=== PATIENT | female | born 1990 | race Caucasian/White ===

== ENCOUNTER → 2016-11-07 | Outpatient (CLI) | payer MEDICAID | END | disposition home or self-care (01) | LOC: LABWHC1 11:21 | PROVIDERS: ATTEND Obstetrics & Gynecology Reproductive Endocrinology | DX: O99.280 Endocrine, nutritional and metabolic diseases complicating pregnancy, unspecified trimester (principal); O34.80 Maternal care for other abnormalities of pelvic organs, unspecified trimester; Z3A.00 Weeks of gestation of pregnancy not specified; Z01.812 Encounter for preprocedural laboratory examination | CPT/HCPCS: 36415; 82670; 84144 ==

== ENCOUNTER → 2016-11-14 | Outpatient (CLI) | payer MEDICAID ==
[2016-11-14 13:05] LABS: HCG,Quantitative Serum 505.8 mIU/mL
== END | disposition home or self-care (01) ==
LOC: LABWHC1 11:25
PROVIDERS: ATTEND Obstetrics & Gynecology Reproductive Endocrinology
DX: Z01.818 Encounter for other preprocedural examination (principal); E34.9 Endocrine disorder, unspecified; N98.1 Hyperstimulation of ovaries
CPT/HCPCS: 36415; 82670; 84144; 84702

== ENCOUNTER → 2016-11-16 | Outpatient (CLI) | payer MEDICAID ==
[2016-11-16 08:38] LABS: HCG,Quantitative Serum 1218.4 mIU/mL
[2016-11-16 10:14] LABS: CH 30.7; CHCM 34.2; HCT 38.6 % (34.0-46.0); HGB 12.9 gm/dL (11.4-16.0); MCH 30.1 pg (25.0-35.0); MCHC 33.4 g/dL (31.0-37.0); MCV 90.2 fL (80.0-100.0); Mean Platelet Volume 7.9; RBC 4.29 m/uL (3.80-5.40); RDW 12.3 % (11.5-15.5); WBC 9.1 k/uL (3.8-10.6)
[2016-11-21 10:15] LABS: Mis test requested (Blood) EBV DNA PCR Qual
== END | disposition home or self-care (01) ==
LOC: LABPRL 07:55 → EDSTATUS 09:54
PROVIDERS: ATTEND Obstetrics & Gynecology Reproductive Endocrinology
DX: Z33.1 Pregnant state, incidental (principal)
CPT/HCPCS: 82670; 84144; 84702; 85027; 86308; 87081; 87430; 87798

== ENCOUNTER → 2016-12-07 | Outpatient (CLI) | payer MEDICAID ==
[2016-12-07 13:31] LABS: HCG,Quantitative Serum 58920.3 mIU/mL
== END | disposition home or self-care (01) ==
LOC: LABWHC1 12:10
PROVIDERS: ATTEND Obstetrics & Gynecology Reproductive Endocrinology
DX: Z01.812 Encounter for preprocedural laboratory examination (principal); E34.9 Endocrine disorder, unspecified; N98.1 Hyperstimulation of ovaries; Z33.1 Pregnant state, incidental
CPT/HCPCS: 36415; 82670; 84144; 84702

== ENCOUNTER 2017-07-12 05:03 | Inpatient (IN) | payer MEDICAID ==
[2017-07-12] MEDS ORDERED: CARBOPROST TROMETHAMINE 250 MCG/ML 1 ML AMP IM PRN (06:52)
[2017-07-12] MEDS ORDERED: TERBUTALINE 1 MG/ML VIAL SQ PRN (06:52)
[2017-07-12] MEDS ORDERED: OXYTOCIN 10 UNIT/ML 1 ML VIAL IM PRN (06:52)
[2017-07-12] MEDS ORDERED: METHYLERGONOVINE 0.2 MG/ML 1 ML AMP IM PRN (06:52)
[2017-07-12] MEDS ORDERED: LIDOCAINE 1% (PF) 10 MG/ML (30 ML SDV) SQ PRN (06:52)
[2017-07-12] MEDS ORDERED: OXYTOCIN 20 UNITS/1000 ML NS 1,000 ML IV SCH (07:00)
[2017-07-12 07:26] VITALS: BMI 31.1
[2017-07-12] MEDS: LACTATED RINGERS 1,000 ML IV SCH ×2 (07:57→20:37)
[2017-07-12 07:59] LABS: CH 29.4; CHCM 33.5; HCT 33.8 % (34.0-46.0); HDW 2.99; HGB 11.4 gm/dL (11.4-16.0); MCH 29.7 pg (25.0-35.0); MCHC 33.7 g/dL (31.0-37.0); MCV 88.3 fL (80.0-100.0); Mean Platelet Volume 8.4; RBC 3.83 m/uL (3.80-5.40); RDW 13.8 % (11.5-15.5); WBC (Perox) 11.26
[2017-07-12] MEDS ORDERED: SODIUM CHLORIDE 0.9% 100 ML BAG ONE (07:59)
[2017-07-12] MEDS ORDERED: BUPIVACAINE (PF) 0.25% 30 ML VIAL ONE (07:59)
[2017-07-12] MEDS ORDERED: fentaNYL (PF) 50 MCG/ML 5 ML AMP ONE (07:59)
[2017-07-12] MEDS ORDERED: BUPIVACAINE (PF) 0.25% 25 ML, fentaNYL (PF) 200 MCG in SODIUM CHLORIDE 0.9% 71 ML EPIDURAL ONE (08:15)
[2017-07-12 08:27] LABS: Add Differential Manual Differential
[2017-07-12 08:29] LABS: Nucleated Red Blood Cells 0 /100 WBC (0-0); Total Cells Counted 100
[2017-07-12 08:30] LABS: Manual Review Performed
--- NOTE | 2017-07-12 11:54 | P.HPOB ---
History of Present Illness H&P Date: 07/12/17 Chief Complaint: 38-6/7 weeks, spontaneous rupture of membranes The patient is a 27-year-old 2 para 1001 admitted at 38-6/7 weeks by IVF dating. She is admitted with some presumed spontaneous rupture of membranes and in early active labor with all signs reassuring. Her has been essentially uncomplicated though she was found at 19 weeks to have a circumvallate placenta and, as a result, has had testing weekly since 32 weeks which was always reassuring. Group B strep status is negative. Obstetrical history: 2 para 1001 with 1 term vaginal delivery without complications. Current statistics are listed above. EDC of 2016 was established by last menstrual period and IVF dating. Laboratory workup demonstrates a blood type of O+ with a negative antibody screen. Rubella status is immune. All other laboratory workup was within normal limits. Second trimester Glucola was normal and group B strep status is negative. Serial growth ultrasounds showed adequate growth throughout the as well. Behavioral Health Consultant history: Unremarkable with no history of any infections to include STDs. Review of Systems Review of systems is confined to history of present illness. Past Medical History Past Medical History: Thyroid Disorder Additional Past Medical History / Comment(s): had grave's disease History of Any Multi-Drug Resistant Organisms: None Reported Additional Past Surgical History / Comment(s): thyroidectomy Past Anesthesia/Blood Transfusion Reactions: No Reported Reaction Past Psychological History: No Psychological Hx Reported Smoking Status: Never smoker Past Alcohol Use History: None Reported Past Drug Use History: None Reported - Past Family History Father Family Medical History: Diabetes Mellitus Medications and Allergies Home Medications Medication Instructions Recorded Confirmed Type Levothyroxine Sodium [Synthroid] 150 mcg PO DAILY 02/24/14 07/12/17 History Idp-Xfyp-Uiixz Acid 1 each PO DAILY 02/24/14 07/12/17 History [-U Capsule] Allergies Allergy/AdvReac Type Severity Reaction Status Date / Time No Known Allergies Allergy Verified 07/12/17 05:25 Exam - Vital Signs Vital signs: Vital Signs Temp Pulse Resp BP 07/12/17 07:22 97.0 F L 95 16 117/76 07/12/17 06:30 97.0 F L 95 16 117/76 Intake and Output 07/11/17 07/12/17 07/12/17 22:59 06:59 14:59 Other: Weight 87.543 kg 87.543 kg Patient Weight 07/13/17 06:59 Weight 87.543 kg In general, this is a well-developed, well-nourished white female in no acute distress. Her heart has a regular rhythm and rate without murmur. Her lungs are clear to auscultation bilaterally in all bedolla. Her abdomen is gravid, nondistended, has normal active bowel sounds, soft, nontender, without any palpable masses aside from uterine fundus. Her extremities without any cyanosis , clubbing, or significant edema and are nontender to palpation bilaterally. Digital cervical examination demonstrates her cervix to be approximately 6-7 cm dilated, 90% effaced, the vertex in presentation at -1 station. Attempt at artificial rupture of membranes demonstrated no fluid likely confirming the diagnosis of spontaneous rupture. Results Result Diagrams: 07/12/17 07:19 Abnormal Lab Results - Last 24 Hours (Table) 07/12/17 Range/Units 07:19 Hct 33.8 L (34.0-46.0) % Neutrophils # (Manual) 8.20 H (1.3-7.7) k/uL Assessment and Plan (1) Spontaneous rupture of amniotic membranes Status: Acute (2) Active labor at term Status: Acute Plan: The patient is admitted for active management of labor. An epidural catheter has been placed for analgesia and she will continue to have close maternal and surveillance along with expectant management.
--- NOTE | 2017-07-12 11:56 | P.PROBDLV ---
Vaginal Delivery Note - . Vaginal Delivery Note: The patient is a 27-year-old 2 para 1001 admitted at 38-6/7 weeks by good dating parameters perches admitted in active labor with spontaneous rupture of membranes. On labor and delivery, all signs were reassuring. She had an epidural catheter placed for analgesia and then progressed steadily through the active phase of labor to complete where after she pushed over the course of approximately 4-5 contractions to a normal spontaneous vaginal delivery of a viable 8 lbs. 1 oz. baby girl with Apgars of 9 at 1 minute and 9 at 5 minutes delivered in the left occiput anterior position. The placenta was delivered spontaneously, intact, and grossly normal with a grossly normal three- vessel cord inserted approximately 2 cm from the margin of the placenta. The findings on the placenta were consistent with circumvallate placenta. A second- degree midline laceration was noted over the site of a previous episiotomy scar and was repaired in standard fashion using 3-0 chromic catgut without difficulty. Estimated blood loss for the case is up roughly 400 mL. There were no complications. All sponge, instrument, and needle counts were correct. Both mother and infant are resting comfortably in recovery.
[2017-07-12] MEDS ORDERED: BENZOCAINE/MENTHOL SPRAY 1 GM/SPRAY AEROSOL TOPICAL PRN (12:16)
[2017-07-12] MEDS ORDERED: SIMETHICONE 80 MG CHEWABLE PO PRN (16:12)
[2017-07-12] MEDS ORDERED: ACETAMINOPHEN TAB 325 MG TAB PO PRN (16:12)
[2017-07-12] MEDS ORDERED: ZOLPIDEM 5 MG TAB PO PRN (16:12)
[2017-07-12] MEDS ORDERED: HYDROCORTISONE 2.5% RECTAL CREAM 30 GM TUBE RECTAL PRN (16:12)
[2017-07-12] MEDS ORDERED: Acetaminophen-Codeine 300-30mg TAB PO PRN ×2 (16:12)
[2017-07-12] MEDS ORDERED: IBUPROFEN 600 MG TAB PO PRN (16:12)
[2017-07-12] MEDS ORDERED: WITCH HAZEL 1 EACH MED..PAD TOPICAL PRN (16:12)
[2017-07-12] MEDS ORDERED: diphenhydrAMINE 50 MG CAP PO PRN (16:12)
[2017-07-12] MEDS ORDERED: diphenhydrAMINE 25 MG CAP PO PRN (16:12)
[2017-07-12] MEDS ORDERED: LANOLIN CREAM 5 GM TUBE TOPICAL PRN (16:12)
[2017-07-12] MEDS ORDERED: diphenhydrAMINE 50 MG/ML 1 ML VIAL IVP PRN ×2 (16:12)
[2017-07-12] MEDS: SENNOSIDES-DOCUSATE SODIUM 1 EACH TAB PO SCH (20:37)
[2017-07-13] MEDS: SENNOSIDES-DOCUSATE SODIUM 1 EACH TAB PO SCH (07:45)
[2017-07-13 08:26] VITALS: BP 111/66; PULSE 89; RESP 18; TEMP 97.6
--- NOTE | 2017-07-13 08:47 | P.DS ---
Providers Date of admission: 07/12/17 06:39 Expected date of discharge: 07/13/17 Attending physician: John Christopher Primary care physician: Stated None - Discharge Diagnosis(es) (1) Spontaneous rupture of amniotic membranes Current Visit: Yes Status: Acute (2) Active labor at term Current Visit: Yes Status: Acute (3) Normal spontaneous vaginal delivery Current Visit: Yes Status: Acute Hospital Course: The patient is a 27-year-old 2 para 1001 admitted at 38-6/7 weeks by good dating parameters perches admitted in early active labor with all signs reassuring. Her was uncomplicated though she did have a circumvallate placenta and underwent testing from 32 weeks on a weekly basis which was reassuring throughout. Group B strep status was negative. On labor and delivery, she had attempted artificial rupture of membranes at which time no fluid was noted nor any bag detected confirming the likelihood that she had undergone spontaneous rupture at the time of presentation. She made good progress through the active phase of labor without any augmentation and ultimately pushed to a normal spontaneous vaginal delivery of a viable 8 lbs. 1 oz. baby girl with Apgars of 9 at 1 minute and 9 at 5 minutes. Her course was unremarkable vital signs being stable and her temperature was afebrile throughout. She was deemed stable for discharge on day #1 and was discharged home to follow-up in the office in 6 weeks' time routinely. Discharge instructions included calling for any significantly increased bleeding or foul-smelling lochia, significantly increased fever or abdominal pain, perineal complaints, breast complaints, or anything else that concerned her. She was additionally instructed to have nothing in the vagina for at least 6 weeks time to include intercourse. She understood her instructions and agrees to follow up as noted above. Discharge medications included continued vitamins as she has opted to breast- feed as well as cpdp-urv-ghlzgtk analgesic pain medications. Maternal blood type is O+ and rubella status is immune. Procedures: #1. Epidural analgesia #2. Normal spontaneous vaginal delivery #3. Repair of perineal laceration Patient Condition at Discharge: Good Plan - Discharge Summary New Discharge Prescriptions: No Action Levothyroxine Sodium [Synthroid] 150 mcg PO DAILY Ubv-Uejo-Ivtvj Acid [-U Capsule] 1 each PO DAILY Discharge Medication List Levothyroxine Sodium [Synthroid] 150 mcg PO DAILY 02/24/14 [History] Kdj-Ryrn-Eyxlh Acid [-U Capsule] 1 each PO DAILY 02/24/14 [ History] Follow up Appointment(s)/Referral(s): John Christopher MD [STAFF PHYSICIAN] - 6 Weeks Discharge Disposition: HOME SELF-CARE
== END 2017-07-13 12:35 | disposition home or self-care (01) | DRG 775 ==
LOC: FBPOP 05:03 → 4FBP 06:39
PROVIDERS: ADMIT Obstetrics & Gynecology; ATTEND Obstetrics & Gynecology
PROC: 10E0XZZ Delivery of Products of Conception, External Approach (ICD-10-PCS; principal; 2017-07-12)
PROC: 00HU33Z Insertion of Infusion Device into Spinal Canal, Percutaneous Approach (ICD-10-PCS; 2017-07-12)
PROC: 3E0R3CZ (ICD-10-PCS; 2017-07-12)
DX: O43.113 Circumvallate placenta, third trimester (principal); E05.00 Thyrotoxicosis with diffuse goiter without thyrotoxic crisis or storm; O99.284 Endocrine, nutritional and metabolic diseases complicating childbirth; Z37.0 Single live birth; Z83.3 Family history of diabetes mellitus; Z3A.38 38 weeks gestation of pregnancy
CPT/HCPCS: 59025; 84112; 85025; 88307; 99213

== ENCOUNTER → 2018-01-04 | Outpatient (CLI) | payer MEDICAID ==
[2018-01-04 08:11] LABS: Basophils % (A) 1 %; Eosinophils # (A) 0.1 k/uL (0-0.7); Eosinophils % (A) 2 %; HCT 39.6 % (34.0-46.0); HGB 12.9 gm/dL (11.4-16.0); Lymphocytes # (A) 1.9 k/uL (1.0-4.8); Lymphocytes % (A) 32 %; MCH 27.9 pg (25.0-35.0); MCHC 32.5 g/dL (31.0-37.0); MCV 85.7 fL (80.0-100.0); Mean Platelet Volume 7.1; Monocytes # (A) 0.4 k/uL (0-1.0); Monocytes % (A) 6 %; Neutrophils # (A) 3.4 k/uL (1.3-7.7); Neutrophils % (A) 58 %; Platelet Count 324 k/uL (150-450); RBC 4.62 m/uL (3.80-5.40); RDW 13.4 % (11.5-15.5); WBC 5.8 k/uL (3.8-10.6)
[2018-01-04 08:33] LABS: ALT 18 U/L (9-52); AST 17 U/L (14-36); Albumin 4.5 g/dL (3.5-5.0); Alkaline Phosphatase 81 U/L (38-126); Anion Gap 12 mmol/L; Blood Urea Nitrogen 26 mg/dL (7-17); Calcium 9.8 mg/dL (8.4-10.2); Carbon Dioxide 28 mmol/L (22-30); Chloride 105 mmol/L (98-107); Cholesterol 200 mg/dL (<200); Glucose 90 mg/dL (74-99); HDL Cholesterol 73 mg/dL (40-60); LDL Cholesterol,Calculated 118 mg/dL (0-99); Potassium 4.1 mmol/L (3.5-5.1); Sodium 145 mmol/L (137-145); Total Bilirubin 0.4 mg/dL (0.2-1.3); Total Protein 7.8 g/dL (6.3-8.2); Triglycerides 43 mg/dL (<150)
== END | disposition home or self-care (01) ==
LOC: LABWHC1 07:56
PROVIDERS: ATTEND Family Medicine
DX: E03.9 Hypothyroidism, unspecified (principal); H81.11 Benign paroxysmal vertigo, right ear; Z79.899 Other long term (current) drug therapy
CPT/HCPCS: 36415; 80053; 80061; 84439; 84443; 85025

== ENCOUNTER → 2018-05-15 | Outpatient (CLI) | payer MEDICAID ==
[2018-05-15 11:21] LABS: Appearance,Urine Turbid (Clear); Bacteria,Urine Many /hpf; Bilirubin,Urine Negative (Negative); Blood,Urine Moderate (Negative); Color,Urine Yellow; Glucose,Urine (UA) Negative (Negative); Ketones,Urine Negative (Negative); Leukocyte Esterase,Urine Large (Negative); Mucus,Urine Many /hpf; Nitrite,Urine Positive (Negative); PH, Urine 6.5 (5.0-8.0); Protein,Urine 2+ (Negative); RBC,Urine 41 /hpf (0-5); Specific Gravity,Urine 1.019 (1.001-1.035); Squamous Epithelial Cell,Urine 29 /hpf (0-4); Urobilinogen,Urine <2.0 mg/dL (<2.0); WBC,Urine >182 /hpf (0-5)
== END | disposition home or self-care (01) ==
LOC: LABMAIN 10:20
PROVIDERS: ATTEND Physician Assistant
DX: N39.0 Urinary tract infection, site not specified (principal)
CPT/HCPCS: 81001; 87077; 87086; 87186

== ENCOUNTER → 2018-11-12 | Outpatient (CLI) | payer MEDICAID | END | disposition home or self-care (01) | LOC: LABWHC1 14:14 | PROVIDERS: ATTEND Physician Assistant Medical | DX: Z34.90 Encounter for supervision of normal pregnancy, unspecified, unspecified trimester (principal); Z3A.00 Weeks of gestation of pregnancy not specified | CPT/HCPCS: 36415; 84702 ==

== ENCOUNTER 2018-11-27 09:19 | Day surgery (SDC) | payer MEDICAID ==
[2018-11-27] MEDS ORDERED: Pre Op ABX Message 1 EACH MISC MISCELLANE ONE (10:00)
[2018-11-27] MEDS ORDERED: LACTATED RINGERS 1,000 ML IV ONE (10:04)
[2018-11-27] MEDS ORDERED: DEXAMETHASONE SOD PHOSPHATE 10 MG/ML 1 ML VIAL IV ONE (10:11)
[2018-11-27] MEDS ORDERED: ONDANSETRON 4 MG/2 ML VIAL IVP ONE (10:11)
[2018-11-27] MEDS ORDERED: SCOPOLAMINE 1.5MG/72HR PATCH TRANSDERM ONE (10:12)
[2018-11-27 10:14] LABS: Basophils % (A) 1 %; Eosinophils # (A) 0.1 k/uL (0-0.7); Eosinophils % (A) 2 %; HCT 35.5 % (34.0-46.0); HGB 11.5 gm/dL (11.4-16.0); Lymphocytes # (A) 1.9 k/uL (1.0-4.8); Lymphocytes % (A) 32 %; MCH 29.6 pg (25.0-35.0); MCHC 32.5 g/dL (31.0-37.0); MCV 91.1 fL (80.0-100.0); Mean Platelet Volume 7.1; Monocytes # (A) 0.3 k/uL (0-1.0); Monocytes % (A) 6 %; Neutrophils # (A) 3.5 k/uL (1.3-7.7); Neutrophils % (A) 58 %; Platelet Count 289 k/uL (150-450); RDW 13.7 % (11.5-15.5)
[2018-11-27] MEDS ORDERED: diphenhydrAMINE 50 MG/ML 1 ML VIAL IVP PRN (11:30)
[2018-11-27] MEDS ORDERED: SIMETHICONE 80 MG CHEWABLE PO PRN (11:30)
[2018-11-27] MEDS ORDERED: Acetaminophen-Codeine 300-30mg TAB PO PRN ×2 (11:30)
[2018-11-27] MEDS ORDERED: ONDANSETRON 4 MG/2 ML VIAL IVP PRN (11:30)
[2018-11-27] MEDS ORDERED: IBUPROFEN 600 MG TAB PO PRN (11:30)
[2018-11-27] MEDS ORDERED: METOCLOPRAMIDE 5 MG/ML 2 ML VIAL IVP PRN (11:30)
[2018-11-27] MEDS ORDERED: LACTATED RINGERS 1,000 ML IV SCH (11:30)
[2018-11-27] MEDS ORDERED: KETOROLAC 30 MG/ML 1 ML VIAL IVP PRN (11:30)
[2018-11-27] MEDS ORDERED: fentaNYL (PF) 50 MCG/ML 2 ML AMP ONE (11:33)
[2018-11-27] MEDS ORDERED: MIDAZOLAM 2 MG/2 ML VIAL ONE (11:33)
[2018-11-27] MEDS ORDERED: PROPOFOL 10 MG/ML 20 ML VIAL IV ONE (11:33)
[2018-11-27] MEDS ORDERED: LIDOCAINE 1% INJ 10MG/ML (20 ML MDV) ONE (11:33)
[2018-11-27] MEDS ORDERED: KETOROLAC 30 MG/ML 1 ML VIAL ONE (11:33)
--- NOTE | 2018-11-27 12:03 | P.OP ---
Date of Procedure: 11/27/18 Preoperative Diagnosis: #1. Seven-week missed Postoperative Diagnosis: Same Procedure(s) Performed: #1. Dilation and aspiration curettage Anesthesia: other (Gen. by face mask) Surgeon: John Christopher Estimated Blood Loss (ml): 100 IV fluids (ml): 400 Urine output (ml): 150 Pathology: other (Endometrial contents) Condition: stable Disposition: PACU Operative Findings: Preoperative pelvic examination demonstrated a roughly 7 week midplane mobile normal shaped uterus with normal adnexa bilaterally. Intraoperatively, the uterus sounded to 10 cm. Tissue was clearly seen going through the tubing on the first pass with the aspiration curet. Following that, no further tissue was noted either with the aspiration curet or the sharp curet. The typical gritty texture was encountered with the sharp curet. Description of Procedure: The patient was prepped and draped in usual fashion after general anesthesia was administered by the anesthesiologist. A weighted speculum was placed and the anterior lip of the cervix was grasped with single-tooth tenaculum. The bladder was drained of approximately 150 mL of clear nicolasa urine. The uterus was sounded to 10 cm as noted above. Serial dilation was carried out to admit a #8 curved aspiration curet. Thorough aspiration curettage was carried out beginning at the fundus and moving circumferentially towards the cervix. Tissue was clearly seen passing through the tubing on the first pass. The second pass demonstrated no further passage of tissue. The aspiration curet was set aside in favor of a sharp curette which was utilized to thoroughly and circumferentially curet the in vitro cavity with no further tissue produced in the typical gritty texture encountered. One last pass was made with the aspiration curet with again no tissue seen. All instrumentation was removed. There is no ongoing bleeding from the anterior lip of the cervix nor from the uterus itself. Estimated blood loss for the entire case was approximately 100 mL. There were no complications. All sponge, instrument, and needle counts were correct. The patient tolerated the procedure well and proceeded to the recovery room in stable condition.
[2018-11-27] MEDS ORDERED: HYDROmorphone 1 MG/ML 1 ML SYRINGE IVP ONE (12:15)
[2018-11-27 12:28] VITALS: TEMP 97.7
[2018-11-27 12:47] VITALS: RESP 16
[2018-11-27 13:32] VITALS: BP 99/62; PULSE 56
== END 2018-11-27 13:43 | disposition home or self-care (01) ==
LOC: OR 09:19
PROVIDERS: ATTEND Obstetrics & Gynecology
DX: O02.1 Missed abortion (principal); Z3A.01 Less than 8 weeks gestation of pregnancy; E89.0 Postprocedural hypothyroidism; Z79.890 Hormone replacement therapy
CPT/HCPCS: 86900; 86901; 88305; 85025; 86850; 59820; J2250; J1100; J2405; J2001; J3010; J1885; J1170; J2704

== ENCOUNTER → 2019-02-05 | Outpatient (CLI) | payer MEDICAID ==
[2019-02-05 10:49] LABS: T4, Free (Free Thyroxine) 1.2 ng/dL (0.80-1.80)
== END | disposition home or self-care (01) ==
LOC: LABMAIN 07:07
PROVIDERS: ATTEND Family Medicine
DX: E05.90 Thyrotoxicosis, unspecified without thyrotoxic crisis or storm (principal); E03.9 Hypothyroidism, unspecified
CPT/HCPCS: 36415; 84439; 84443

== ENCOUNTER → 2019-06-17 | Outpatient (CLI) | payer MEDICAID ==
[2019-06-17 10:56] LABS: HCG,Quantitative Serum <2.4 mIU/mL
[2019-06-17 18:26] LABS: Progesterone 55.5 ng/mL
== END ==
LOC: LABMAIN 09:21
PROVIDERS: ATTEND Obstetrics & Gynecology Reproductive Endocrinology
DX: E34.9 Endocrine disorder, unspecified (principal)
CPT/HCPCS: 36415; 82670; 84144; 84443; 84702

== ENCOUNTER → 2019-06-25 | Outpatient (CLI) | payer MEDICAID | END | disposition home or self-care (01) | LOC: LABMAIN 09:51 | PROVIDERS: ATTEND Obstetrics & Gynecology Reproductive Endocrinology | DX: O20.8 Other hemorrhage in early pregnancy (principal) | CPT/HCPCS: 36415; 82672; 84144; 84702 ==

== ENCOUNTER → 2019-06-27 | Outpatient (CLI) | payer MEDICAID | END | disposition home or self-care (01) | LOC: LABMAIN 08:33 | PROVIDERS: ATTEND Obstetrics & Gynecology Reproductive Endocrinology | DX: O20.8 Other hemorrhage in early pregnancy (principal) | CPT/HCPCS: 36415; 82672; 84144; 84702 ==

== ENCOUNTER → 2019-07-01 | Outpatient (CLI) | payer MEDICAID | END | disposition home or self-care (01) | LOC: LABWHC1 07:29 | PROVIDERS: ATTEND Obstetrics & Gynecology Reproductive Endocrinology | DX: O20.8 Other hemorrhage in early pregnancy (principal) | CPT/HCPCS: 36415; 82672; 84144; 84702 ==

== ENCOUNTER → 2019-07-04 | Outpatient (CLI) | payer MEDICAID | END | disposition home or self-care (01) | LOC: LABWHC1 09:06 | PROVIDERS: ATTEND Obstetrics & Gynecology Reproductive Endocrinology | DX: O20.8 Other hemorrhage in early pregnancy (principal) | CPT/HCPCS: 36415; 84702 ==

== ENCOUNTER → 2019-07-30 | Outpatient (CLI) | payer MEDICAID | END | disposition home or self-care (01) | LOC: LABWHC1 08:30 | PROVIDERS: ATTEND Obstetrics & Gynecology Reproductive Endocrinology | DX: O02.1 Missed abortion (principal) | CPT/HCPCS: 36415; 84702 ==

== ENCOUNTER → 2020-03-04 | Outpatient (CLI) | payer MEDICAID ==
[2020-03-05 11:24] LABS: T4, Free (Free Thyroxine) 1.6 ng/dL (0.80-1.80)
== END | disposition home or self-care (01) ==
LOC: LABMAIN 15:08
PROVIDERS: ATTEND Family Medicine
DX: E03.9 Hypothyroidism, unspecified (principal)
CPT/HCPCS: 36415; 84439; 84443

== ENCOUNTER → 2020-10-20 | Outpatient (CLI) | payer MEDICAID | END | disposition home or self-care (01) | LOC: LABMAIN 11:02 | PROVIDERS: ATTEND Internal Medicine Endocrinology, Diabetes & Metabolism | DX: E03.8 Other specified hypothyroidism (principal) | CPT/HCPCS: 36415; 84443 ==

== ENCOUNTER → 2020-10-30 | Outpatient (CLI) | payer MEDICAID | END | disposition home or self-care (01) | LOC: LABMAIN 18:35 | PROVIDERS: ATTEND Physician Assistant Medical | DX: Z20.828 Contact with and (suspected) exposure to other viral communicable diseases (principal) | CPT/HCPCS: 36415; 86769 ==

== ENCOUNTER → 2021-01-21 | Outpatient (CLI) | payer MEDICAID | END | disposition home or self-care (01) | LOC: LABMAIN 15:17 | PROVIDERS: ATTEND Obstetrics & Gynecology | DX: N92.5 Other specified irregular menstruation (principal) | CPT/HCPCS: 36415; 84702 ==

== ENCOUNTER → 2021-01-23 | Outpatient (CLI) | payer MEDICAID | END | disposition home or self-care (01) | LOC: LABMAIN 10:43 | PROVIDERS: ATTEND Obstetrics & Gynecology | DX: N92.5 Other specified irregular menstruation (principal) | CPT/HCPCS: 36415; 84144; 84702 ==

== ENCOUNTER → 2021-01-25 | Outpatient (CLI) | payer MEDICAID | END | disposition home or self-care (01) | LOC: LABWHC1 15:22 | PROVIDERS: ATTEND Obstetrics & Gynecology | DX: O20.0 Threatened abortion (principal); Z3A.00 Weeks of gestation of pregnancy not specified | CPT/HCPCS: 36415; 84702 ==

== ENCOUNTER 2021-01-26 07:42 | Emergency (ER) | payer MEDICAID ==
[2021-01-26] MEDS ORDERED: SODIUM CHLORIDE 0.9% 1,000 ML IV ONE (07:53)
--- NOTE | 2021-01-26 08:00 | ED ---
General Adult HPI - General Chief complaint: Dizziness Stated complaint: dizziness Time Seen by Provider: 01/26/21 07:51 Source: patient, RN notes reviewed Mode of arrival: ambulatory Limitations: no limitations - History of Present Illness Initial comments: Pt is a 30-year-old female with a past medical history of Graves' disease, thyroidectomy presents to the emergency room for lightheadedness. Patient states that she felt very lightheaded this morning and checked her blood pressure and it was 70 systolic. She reports that she sat down and felt better and it did improve to 103. However when she stood up she reports she started to feel lightheaded again patient reports she is 5 weeks . She had her hCG levels checked a few days ago and were 600. Yesterday when they rechecked and the decreased to 570. Patient has not had any abdominal pain. She did have some slight low back pain yesterday.Patient has no other complaints at this time including shortness of breath, chest pain, abdominal pain, nausea or vomiting, headache, or visual changes. - Related Data Home Medications Medication Instructions Recorded Confirmed Levothyroxine Sodium [Synthroid] 25 mg PO DAILY 02/24/14 07/12/17 Rvl-Pplo-Ejdtd Acid 1 each PO DAILY 02/24/14 07/12/17 [-U Capsule] Allergies Allergy/AdvReac Type Severity Reaction Status Date / Time No Known Allergies Allergy Verified 01/26/21 07:47 Review of Systems ROS Statement: Those systems with pertinent positive or pertinent negative responses have been documented in the HPI. ROS Other: All systems not noted in ROS Statement are negative. Past Medical History Past Medical History: Thyroid Disorder Additional Past Medical History / Comment(s): grave's disease History of Any Multi-Drug Resistant Organisms: None Reported Additional Past Surgical History / Comment(s): thyroidectomy Past Anesthesia/Blood Transfusion Reactions: No Reported Reaction Past Psychological History: No Psychological Hx Reported Smoking Status: Never smoker Past Alcohol Use History: Occasional Past Drug Use History: None Reported - Past Family History Father Family Medical History: Diabetes Mellitus General Exam Limitations: no limitations General appearance: alert, in no apparent distress Head exam: Present: atraumatic, normocephalic, normal inspection Eye exam: Present: normal appearance, PERRL, EOMI. Absent: scleral icterus, conjunctival injection, periorbital swelling ENT exam: Present: normal exam, mucous membranes moist Neck exam: Present: normal inspection, full ROM. Absent: tenderness, meningismus, lymphadenopathy Respiratory exam: Present: normal lung sounds bilaterally. Absent: respiratory distress, wheezes, rales, rhonchi, stridor Cardiovascular Exam: Present: regular rate, normal rhythm, normal heart sounds. Absent: systolic murmur, diastolic murmur, rubs, gallop, clicks GI/Abdominal exam: Present: soft, normal bowel sounds. Absent: distended, tenderness, guarding, rebound, rigid Course Vital Signs 01/26/21 01/26/21 07:45 08:50 Pulse Rate 74 77 Respiratory 18 16 Rate Blood Pressure 99/67 99/63 O2 Sat by Pulse 98 100 Oximetry EKG Findings - EKG Comments: EKG Findings:: Sinus rhythm, ventricular rate 65, SD interval 102, QTC 432 Medical Decision Making - Medical Decision Making vitals are stable. HPI and physical exam as documented. No vaginal bleeding according to patient. No abdominal pain or tenderness. CBC CMP unremarkable. HCG is 494, down downtrending. Urinalysis unremarkable. Ultrasound shows no IUP or retained products of conception. At this time patient reevaluated had si gnificant improvement in symptoms. Lightheadedness has resolved. Blood pressure 115 systolic. At this time patient is stable for discharge home. Recommend she follow up with [facility] as soon as possible. I discussed this case with attending Dr. Rodarte who agrees with this assessment and treatment plan. - Lab Data Result diagrams: 01/26/21 08:07 01/26/21 08:55 Lab Results 01/26/21 01/26/21 01/26/21 Range/Units 08:07 08:10 08:55 WBC 5.2 (3.8-10.6) k/uL RBC 3.80 (3.80-5.40) m/uL Hgb 12.2 (11.4-16.0) gm/dL Hct 35.2 (34.0-46.0) % MCV 92.7 (80.0-100.0) fL MCH 32.1 (25.0-35.0) pg MCHC 34.6 (31.0-37.0) g/dL RDW 12.6 (11.5-15.5) % Plt Count 254 (150-450) k/uL MPV 8.0 Neutrophils % 62 % Lymphocytes % 26 % Monocytes % 5 % Eosinophils % 5 % Basophils % 0 % Neutrophils # 3.2 (1.3-7.7) k/uL Lymphocytes # 1.4 (1.0-4.8) k/uL Monocytes # 0.3 (0-1.0) k/uL Eosinophils # 0.2 (0-0.7) k/uL Basophils # 0.0 (0-0.2) k/uL Sodium 136 L (137-145) mmol/L Potassium 4.0 (3.5-5.1) mmol/L Chloride 107 (98-107) mmol/L Carbon Dioxide 22 (22-30) mmol/L Anion Gap 7 mmol/L BUN 17 (7-17) mg/dL Creatinine 0.62 (0.52-1.04) mg/dL Est GFR (CKD-EPI)AfAm >90 (>60 ml/min/1.73 sqM) Est GFR (CKD-EPI)NonAf >90 (>60 ml/min/1.73 sqM) Glucose 101 H (74-99) mg/dL Calcium 8.8 (8.4-10.2) mg/dL Total Bilirubin 0.3 (0.2-1.3) mg/dL AST 22 (14-36) U/L ALT 12 (4-34) U/L Alkaline Phosphatase 51 (38-126) U/L Total Protein 7.3 (6.3-8.2) g/dL Albumin 4.2 (3.5-5.0) g/dL HCG, Quant 494.5 mIU/mL Urine Color Yellow Urine Appearance Cloudy H (Clear) Urine pH 5.5 (5.0-8.0) Ur Specific Hardy 1.024 (1.001-1.035) Urine Protein Trace H (Negative) Urine Glucose (UA) Negative (Negative) Urine Ketones Negative (Negative) Urine Blood Negative (Negative) Urine Nitrite Negative (Negative) Urine Bilirubin Negative (Negative) Urine Urobilinogen <2.0 (<2.0) mg/dL Ur Leukocyte Esterase Trace H (Negative) Urine RBC 3 (0-5) /hpf Urine WBC 5 (0-5) /hpf Ur Squamous Epith Cells 19 H (0-4) /hpf Urine Bacteria Rare H (None) /hpf Urine Mucus Many H (None) /hpf Blood Type Blood Type Recheck Bld Type Recheck Status Antibody Screen Spec Expiration Date 01/26/21 Range/Units 08:55 WBC (3.8-10.6) k/uL RBC (3.80-5.40) m/uL Hgb (11.4-16.0) gm/dL Hct (34.0-46.0) % MCV (80.0-100.0) fL MCH (25.0-35.0) pg MCHC (31.0-37.0) g/dL RDW (11.5-15.5) % Plt Count (150-450) k/uL MPV Neutrophils % % Lymphocytes % % Monocytes % % Eosinophils % % Basophils % % Neutrophils # (1.3-7.7) k/uL Lymphocytes # (1.0-4.8) k/uL Monocytes # (0-1.0) k/uL Eosinophils # (0-0.7) k/uL Basophils # (0-0.2) k/uL Sodium (137-145) mmol/L Potassium (3.5-5.1) mmol/L Chloride (98-107) mmol/L Carbon Dioxide (22-30) mmol/L Anion Gap mmol/L BUN (7-17) mg/dL Creatinine (0.52-1.04) mg/dL Est GFR (CKD-EPI)AfAm (>60 ml/min/1.73 sqM) Est GFR (CKD-EPI)NonAf (>60 ml/min/1.73 sqM) Glucose (74-99) mg/dL Calcium (8.4-10.2) mg/dL Total Bilirubin (0.2-1.3) mg/dL AST (14-36) U/L ALT (4-34) U/L Alkaline Phosphatase (38-126) U/L Total Protein (6.3-8.2) g/dL Albumin (3.5-5.0) g/dL HCG, Quant mIU/mL Urine Color Urine Appearance (Clear) Urine pH (5.0-8.0) Ur Specific Hardy (1.001-1.035) Urine Protein (Negative) Urine Glucose (UA) (Negative) Urine Ketones (Negative) Urine Blood (Negative) Urine Nitrite (Negative) Urine Bilirubin (Negative) Urine Urobilinogen (<2.0) mg/dL Ur Leukocyte Esterase (Negative) Urine RBC (0-5) /hpf Urine WBC (0-5) /hpf Ur Squamous Epith Cells (0-4) /hpf Urine Bacteria (None) /hpf Urine Mucus (None) /hpf Blood Type O Positive Blood Type Recheck O Pos Bld Type Recheck Status No Antibody Screen NEGATIVE Spec Expiration Date 01/29/20212354 Disposition Clinical Impression: Light headedness, Elevated serum hCG Disposition: HOME SELF-CARE Condition: Good Instructions (If sedation given, give patient instructions): Threatened Miscarriage (ED), Lightheadedness (ED) Additional Instructions: Drink plenty of fluids. Follow-up with [facility]. If you have worsening symptoms such as abdominal pain or worsening lightheadedness return to the emergency room. Is patient prescribed a controlled substance at d/c from ED?: No Referrals: Mina Byers Jr, [Primary Care Provider] - 1-2 days John Christopher MD [STAFF PHYSICIAN] - 1-2 days
[2021-01-26 08:40] LABS: Basophils % (A) 0 %; Eosinophils # (A) 0.2 k/uL (0-0.7); Eosinophils % (A) 5 %; HCT 35.2 % (34.0-46.0); HGB 12.2 gm/dL (11.4-16.0); Lymphocytes # (A) 1.4 k/uL (1.0-4.8); Lymphocytes % (A) 26 %; MCH 32.1 pg (25.0-35.0); MCHC 34.6 g/dL (31.0-37.0); MCV 92.7 fL (80.0-100.0); Monocytes # (A) 0.3 k/uL (0-1.0); Monocytes % (A) 5 %; Neutrophils # (A) 3.2 k/uL (1.3-7.7); Neutrophils % (A) 62 %; Platelet Count 254 k/uL (150-450); RDW 12.6 % (11.5-15.5); WBC 5.2 k/uL (3.8-10.6)
[2021-01-26 08:51] LABS: Appearance,Urine Cloudy (Clear); Bacteria,Urine Rare /hpf; Bilirubin,Urine Negative (Negative); Blood,Urine Negative (Negative); Color,Urine Yellow; Glucose,Urine (UA) Negative (Negative); Ketones,Urine Negative (Negative); Leukocyte Esterase,Urine Trace (Negative); Mucus,Urine Many /hpf; Nitrite,Urine Negative (Negative); PH, Urine 5.5 (5.0-8.0); Protein,Urine Trace (Negative); RBC,Urine 3 /hpf (0-5); Specific Gravity,Urine 1.024 (1.001-1.035); Squamous Epithelial Cell,Urine 19 /hpf (0-4); Urobilinogen,Urine <2.0 mg/dL (<2.0); WBC,Urine 5 /hpf (0-5)
[2021-01-26 08:52] VITALS: RESP 16
--- NOTE | 2021-01-26 09:41 | US ---
EXAMINATION TYPE: Transabdominal DATE OF EXAM: 01/26/2021 9:22 AM COMPARISON: NONE CLINICAL HISTORY: near syncope, early preg. Miscarriage EXAM PERFORMED: Transvaginal (TV) and Transabdominal (TA) EXAM MEASUREMENTS: GESTATIONAL AGE / DATING Physician Established: Not yet established Dates by LMP: LMP unknown Dates by First Scan: No previous this is first scan ( Dates by Current Scan for: No IUP seen at this time ( MATERNAL ANATOMY Uterus: 7.4 x 5.9 x 6.7 cm Right Ovary: 3.5 x 1.2 x 1.3 cm Left Ovary: Obscured by bowel gas Post CDS / Adnexa: wnl Presence of free fluid: no Presence of corpus luteal cyst: no Presence of subchorionic bleed: no GESTATION / SURVEY IUP: No IUP seen at this time Beta HcG (if available): Not available at this time IMPRESSION: 1. No retained products of conception identified.
[2021-01-26 09:46] LABS: ALT 12 U/L (4-34); AST 22 U/L (14-36); African American GFR (CKD) >90 (>60 ml/min/1.73 sqM); Albumin 4.2 g/dL (3.5-5.0); Alkaline Phosphatase 51 U/L (38-126); Anion Gap 7 mmol/L; Blood Urea Nitrogen 17 mg/dL (7-17); Calcium 8.8 mg/dL (8.4-10.2); Carbon Dioxide 22 mmol/L (22-30); Chloride 107 mmol/L (98-107); Glucose 101 mg/dL (74-99); Non-African American GFR(CKD) >90 (>60 ml/min/1.73 sqM); Sodium 136 mmol/L (137-145); Total Bilirubin 0.3 mg/dL (0.2-1.3); Total Protein 7.3 g/dL (6.3-8.2)
[2021-01-26 10:01] LABS: HCG,Quantitative Serum 494.5 mIU/mL
[2021-01-26 10:32] VITALS: BP 115/75; PULSE 67
== END 2021-01-26 10:32 | disposition home or self-care (01) ==
LOC: EC 07:42
DX: O26.891 Other specified pregnancy related conditions, first trimester (principal); R42 Dizziness and giddiness; O02.81 Inappropriate change in quantitative human chorionic gonadotropin (hCG) in early pregnancy; O99.281 Endocrine, nutritional and metabolic diseases complicating pregnancy, first trimester; E07.9 Disorder of thyroid, unspecified; Z3A.01 Less than 8 weeks gestation of pregnancy; Z79.890 Hormone replacement therapy
CPT/HCPCS: 36415; 76801; 76817; 80053; 81001; 84702; 85025; 86850; 86900; 86901; 93005; 96360; 99284

== ENCOUNTER → 2021-05-11 | Outpatient (CLI) | payer MEDICAID | END | disposition home or self-care (01) | LOC: LABMAIN 13:51 | PROVIDERS: ATTEND Internal Medicine Endocrinology, Diabetes & Metabolism | DX: E03.9 Hypothyroidism, unspecified (principal) | CPT/HCPCS: 36415; 84443 ==

== ENCOUNTER → 2021-06-24 | Outpatient (CLI) | payer MEDICAID | END | disposition home or self-care (01) | LOC: LABMAIN 17:22 | PROVIDERS: ATTEND Emergency Medicine | DX: Z20.822 Contact with and (suspected) exposure to COVID-19 (principal); R43.0 Anosmia | CPT/HCPCS: 87635 ==

== ENCOUNTER → 2021-09-23 | Outpatient (CLI) | payer MEDICAID ==
[2021-09-24 04:11] LABS: Hepatitis B Surface Antigen Nonreactive (Nonreactive); Hepatitis C IgG Antibody Nonreactive (Nonreactive)
[2021-09-24 04:18] LABS: Follicle Stimulating Hormone 6.5 mIU/mL; Luteinizing Hormone 5.2 mIU/mL
[2021-09-24 04:19] LABS: Prolactin 9.2 ng/mL (2.800-29.200)
[2021-09-24 12:36] LABS: Protein C (Activity) 132 % (71-138)
[2021-09-24 14:06] LABS: Anti-Thrombin III Activity 103 % (79-109)
[2021-09-24 14:43] LABS: Cardiolipin Ab IgG Interp NEGATIVE (NEGATIVE); Cardiolipin Ab IgM Interp NEGATIVE (NEGATIVE); Cardiolipin IgA Antibody <2.0 U/mL
[2021-09-24 14:44] LABS: HIV 2 AB Non-Reactive (Non-Reactive); HIV AB P24 Non-Reactive (Non-Reactive); HIV P24 AG Non-Reactive (Non-Reactive)
[2021-09-24 15:20] LABS: APTT 41 Sec(s) (<43); Dilute Russell Viper Venom 35 Sec(s) (<44)
[2021-09-24 19:15] LABS: Anti-Mullerian Hormone 3.79 ng/mL (0.36 - 10.07)
== END | disposition home or self-care (01) ==
LOC: LABWHC1 14:03
PROVIDERS: ATTEND Obstetrics & Gynecology Reproductive Endocrinology
DX: Z11.3 Encounter for screening for infections with a predominantly sexual mode of transmission (principal); Z13.0 Encounter for screening for diseases of the blood and blood-forming organs and certain disorders involving the immune mechanism; Z13.29 Encounter for screening for other suspected endocrine disorder; N97.9 Female infertility, unspecified; E03.9 Hypothyroidism, unspecified
CPT/HCPCS: 36415; 82306; 82397; 83001; 83002; 83090; 84146; 84443; 85300; 85303; 85306; 85307; 85613; 85730; 86147; 86780; 86787; 86803; 87340; 87390

== ENCOUNTER → 2021-11-12 | Outpatient (CLI) | payer MEDICAID | END | disposition home or self-care (01) | LOC: LABWHC1 14:50 | PROVIDERS: ATTEND Obstetrics & Gynecology Reproductive Endocrinology | DX: Z13.0 Encounter for screening for diseases of the blood and blood-forming organs and certain disorders involving the immune mechanism (principal); N96 Recurrent pregnancy loss | CPT/HCPCS: 36415; 81240; 81241; 85307 ==

== ENCOUNTER → 2022-01-13 | Outpatient (CLI) | payer MEDICAID | END | disposition home or self-care (01) | LOC: LABWHC1 12:05 | PROVIDERS: ATTEND Obstetrics & Gynecology Reproductive Endocrinology | DX: N96 Recurrent pregnancy loss (principal) | CPT/HCPCS: 36415; 82306 ==

== ENCOUNTER → 2022-02-17 | Outpatient (CLI) | payer MEDICAID | END | disposition home or self-care (01) | LOC: LABMAIN 16:19 | PROVIDERS: ATTEND Emergency Medicine | DX: Z20.822 Contact with and (suspected) exposure to COVID-19 (principal) | CPT/HCPCS: 87635 ==

== ENCOUNTER → 2022-02-22 | Outpatient (CLI) | payer MEDICAID | END | disposition home or self-care (01) | LOC: LABMAIN 08:32 | PROVIDERS: ATTEND Obstetrics & Gynecology Reproductive Endocrinology | DX: Z13.29 Encounter for screening for other suspected endocrine disorder (principal) | CPT/HCPCS: 84443 ==

== ENCOUNTER → 2022-03-16 | Outpatient (CLI) | payer MEDICAID | END | disposition home or self-care (01) | LOC: LABMAIN 02:12 | PROVIDERS: ATTEND Emergency Medicine | DX: Z34.90 Encounter for supervision of normal pregnancy, unspecified, unspecified trimester (principal); Z3A.00 Weeks of gestation of pregnancy not specified | CPT/HCPCS: 84702 ==

== ENCOUNTER → 2022-05-24 | Outpatient (CLI) | payer MEDICAID ==
[2022-05-24 09:20] LABS: HCT 34.1 % (34.0-46.0); HGB 11.4 gm/dL (11.4-16.0); MCH 31.2 pg (25.0-35.0); MCHC 33.3 g/dL (31.0-37.0); MCV 93.9 fL (80.0-100.0); Mean Platelet Volume 7.7; Platelet Count 262 k/uL (150-450); RBC 3.64 m/uL (3.80-5.40); RDW 12.2 % (11.5-15.5); WBC 6.7 k/uL (3.8-10.6)
[2022-05-24 10:47] LABS: T4, Free (Free Thyroxine) 1.15 ng/dL (0.800-1.800)
== END | disposition home or self-care (01) ==
LOC: LABMAIN 08:01
PROVIDERS: ATTEND Obstetrics & Gynecology
DX: Z34.82 Encounter for supervision of other normal pregnancy, second trimester (principal); Z3A.00 Weeks of gestation of pregnancy not specified
CPT/HCPCS: 84439; 84443; 85027; 86762; 86850; 86900; 86901

== ENCOUNTER → 2022-07-19 | Outpatient (CLI) | payer MEDICAID | END | disposition home or self-care (01) | LOC: LABMAIN 14:41 | PROVIDERS: ATTEND Internal Medicine Endocrinology, Diabetes & Metabolism | DX: E78.5 Hyperlipidemia, unspecified (principal) | CPT/HCPCS: 84443 ==

== ENCOUNTER → 2022-09-20 | Outpatient (CLI) | payer MEDICAID | END | disposition home or self-care (01) | LOC: LABWHC1 07:26 | PROVIDERS: ATTEND Obstetrics & Gynecology | DX: Z36.9 Encounter for antenatal screening, unspecified (principal) | CPT/HCPCS: 36415; 82950 ==

== ENCOUNTER 2022-11-08 06:30 | Inpatient (IN) | payer MEDICAID ==
[2022-11-08] MEDS ORDERED: PENICILLIN G POTASSIUM 5,000,000 UNIT in DEXTROSE 5% IN WATER 100 ML IVPB STA ×2 (06:53)
[2022-11-08] MEDS ORDERED: LIDOCAINE 0.5% (PF) 5 MG/ML (50 ML SDV) SQ PRN (06:53)
[2022-11-08] MEDS ORDERED: TERBUTALINE 1 MG/ML VIAL SQ PRN (06:53)
[2022-11-08] MEDS ORDERED: OXYTOCIN 30 UNITS/500 ML NS 30 UNIT in SALINE 1 500ML.BAG IV SCH ×2 (07:00→14:00)
[2022-11-08] MEDS: LACTATED RINGERS 1,000 ML IV SCH ×2 (07:04→19:38)
[2022-11-08 08:13] LABS: Basophils % (A) 1 %; Eosinophils # (A) 0.1 k/uL (0-0.7); Eosinophils % (A) 1 %; HCT 34.5 % (34.0-46.0); HGB 11.3 gm/dL (11.4-16.0); Lymphocytes # (A) 1.7 k/uL (1.0-4.8); Lymphocytes % (A) 23 %; MCH 30.3 pg (25.0-35.0); MCHC 32.7 g/dL (31.0-37.0); MCV 92.6 fL (80.0-100.0); Mean Platelet Volume 10.7; Monocytes # (A) 0.3 k/uL (0-1.0); Monocytes % (A) 5 %; Neutrophils # (A) 4.8 k/uL (1.3-7.7); Neutrophils % (A) 68 %; Platelet Count 172 k/uL (150-450); RBC 3.72 m/uL (3.80-5.40); RDW 13.8 % (11.5-15.5); WBC 7.1 k/uL (3.8-10.6)
[2022-11-08] MEDS ORDERED: BUTORPHANOL 1 MG/ML 1 ML VIAL IV PRN (09:20)
--- NOTE | 2022-11-08 09:20 | P.HPOB ---
History of Present Illness H&P Date: 11/08/22 Chief Complaint: 39-0/7 weeks, elective induction. the patient is a 32-year-old 9 para 2061 admitted at 39-0/7 weeks as established by IVF dating and last menstrual period. She presents for elective induction with all signs reassuring, category 1 heart rate tracing. Her has been uncomplicated though she is noted to be group B strep positive. Obstetrical history: 9 para 2061 with 2 term vaginal deliveries and 6 early losses. EDC of 11/15/2022 was established by last menstrual period and IVF dating. All the statistics are listed in history present illness. Laboratory workup demonstrates a blood type O+ with a negative antibody screen. Rubella status is immune. The remainder of laboratory workup was within normal limits. One hour Glucola was normal and group B strep status is positive. Gynecologic history: Unremarkable with no history of any infections to include STDs. Past Medical History Past Medical History: Thyroid Disorder Additional Past Medical History / Comment(s): grave's disease History of Any Multi-Drug Resistant Organisms: None Reported Additional Past Surgical History / Comment(s): thyroidectomy, left breast lumpectomy 2010 Past Anesthesia/Blood Transfusion Reactions: No Reported Reaction Past Psychological History: No Psychological Hx Reported Smoking Status: Never smoker Past Alcohol Use History: Occasional Past Drug Use History: None Reported - Past Family History Father Family Medical History: Diabetes Mellitus Medications and Allergies Home Medications Medication Instructions Recorded Confirmed Type Dyx-Krnq-Zceyc Acid 1 each PO DAILY 02/24/14 11/08/22 History [-U Capsule] Levothyroxine Sodium [Synthroid] 1 tab PO DAILY 11/08/22 11/08/22 History Allergies Allergy/AdvReac Type Severity Reaction Status Date / Time No Known Allergies Allergy Verified 01/26/21 07:47 Exam Vital Signs Temp Pulse Resp BP Pulse Ox 11/08/22 07:24 97.4 F L 83 16 117/75 98 Intake and Output 11/07/22 11/08/22 11/08/22 22:59 06:59 14:59 Other: Weight 83.007 kg 83.007 kg in general, this is a well-developed, well-nourished white female in no acute distress. Her heart has a regular rhythm and rate without murmur. Her lungs are clear to auscultation bilaterally in all bedolla. Her abdomen is gravid, nondistended, has normal active bowel sounds, soft, nontender, and without any palpable masses aside from uterine fundus. Her extremities are without any cyanosis, clubbing, or significant edema and are nontender to palpation bilaterally. Digital cervical examination on straights her cervix to be approximately 3 cm dilated, 50% effaced, the vertex in presentation at -2 stati on below the cervix is fairly posterior. Artificial rupture of membranes is carried out demonstrating clear fluid. Results Result Diagrams: 11/08/22 07:09 Abnormal Lab Results - Last 24 Hours (Table) 11/08/22 Range/Units 07:09 RBC 3.72 L (3.80-5.40) m/uL Hgb 11.3 L (11.4-16.0) gm/dL Assessment and Plan (1) Term Current Visit: Yes Status: Acute Code(s): Z34.90 - ENCNTR FOR SUPRVSN OF NORMAL , UNSP, UNSP TRIMESTER SNOMED Code(s): 63918996 (2) Group B streptococcal infection in Current Visit: No Status: Acute Code(s): O98.819 - OTH MATERNAL INFE C/PARASTC DISEASES COMP PREG, UNSP TRI SNOMED Code(s): 723668872 Plan: the patient is admitted for elective induction of labor. The risks and complications and the thoroughly discussed and she is understood and agreed to proceed. She will have close maternal and surveillance and expectant management will be practice. Pitocin is Roldan been started and artificial rupture of membranes carried out. She is a good candidate for either IV or epidural analgesia, whichever she may choose. As she is group B strep positive, antibody prophylaxis has been started as well.
[2022-11-08] MEDS: PENICILLIN G POTASSIUM 2,500,000 UNIT in DEXTROSE 5% IN WATER 100 ML IVPB SCH ×4 (11:45→19:38)
[2022-11-08] MEDS ORDERED: fentaNYL (PF) 50 MCG/ML 5 ML AMP ONE (12:02)
[2022-11-08] MEDS ORDERED: ROPIVACAINE 5 MG/ML 20 ML AMPULE ONE (12:02)
[2022-11-08] MEDS ORDERED: SODIUM CHLORIDE 0.9% 100 ML BAG ONE (12:02)
[2022-11-08] MEDS ORDERED: ZOLPIDEM 5 MG TAB PO PRN (13:51)
[2022-11-08] MEDS ORDERED: diphenhydrAMINE 50 MG/ML 1 ML VIAL IVP PRN ×2 (13:51)
[2022-11-08] MEDS ORDERED: HYDROcodone/APAP 7.5-325MG 1 EACH TAB PO PRN (13:51)
[2022-11-08] MEDS ORDERED: BENZOCAINE/MENTHOL SPRAY 1 GM/SPRAY AEROSOL TOPICAL PRN (13:51)
[2022-11-08] MEDS ORDERED: ACETAMINOPHEN TAB 325 MG TAB PO PRN (13:51)
[2022-11-08] MEDS ORDERED: SIMETHICONE 80 MG CHEWABLE PO PRN (13:51)
[2022-11-08] MEDS ORDERED: LANOLIN CREAM 5 GM TUBE TOPICAL PRN (13:51)
[2022-11-08] MEDS ORDERED: diphenhydrAMINE 25 MG CAP PO PRN (13:51)
[2022-11-08] MEDS ORDERED: HYDROCORTISONE 2.5% RECTAL CREAM 30 GM TUBE RECTAL PRN (13:51)
[2022-11-08] MEDS ORDERED: HYDROcodone/APAP 5-325MG 1 EACH TAB PO PRN (13:51)
[2022-11-08] MEDS ORDERED: diphenhydrAMINE 50 MG CAP PO PRN (13:51)
--- NOTE | 2022-11-08 13:54 | P.PROBDLV ---
Vaginal Delivery Note - . Vaginal Delivery Note: the patient is a 32-year-old 9 para 2061 admitted at 39-0/7 weeks by good dating parameters. She is admitted for elective induction with all signs reassuring. Her has been uncomplicated though she is group B strep positive. On labor and delivery, antibody prophylaxis was started along with Pitocin augmentation. She underwent artificial rupture of membranes for clear fluid. She progressed in the active phase of labor and had an epidural catheter placed which initially was unsuccessful and was removed and replaced at which time she had excellent pain relief. She progressed to complete and then pushed over the course of approximately 10-15 minutes to a normal spontaneous vaginal delivery of a viable 7 lbs. 12 oz. baby boy with Apgars of 8 at 1 minute and 9 at 5 minutes delivered in the direct occiput anterior position. The placenta was delivered spontaneously, intact, and grossly normal with a grossly normal three-vessel cord inserted approximate 3-4 synovators from the margin of the placental disc. There was a small first-degree midline perineal laceration over the site of previous lacerations which was repaired with 2 [id number] stitches of 3-0 chromic catgut without difficulty. A single blood loss for the case was approximately 100 mL. There were no complications. All sponge, instrument, needle counts were correct. Both mother and infant are resting comfortably in recovery.
[2022-11-08] MEDS: SENNOSIDES-DOCUSATE SODIUM 1 EACH TAB PO SCH (19:31)
[2022-11-08] MEDS: IBUPROFEN 600 MG TAB PO PRN (23:17)
[2022-11-09 07:30] LABS: Basophils % (A) 0 %; Eosinophils # (A) 0.1 k/uL (0-0.7); Eosinophils % (A) 1 %; HCT 32.4 % (34.0-46.0); HGB 10.8 gm/dL (11.4-16.0); Lymphocytes # (A) 1.8 k/uL (1.0-4.8); Lymphocytes % (A) 18 %; MCHC 33.4 g/dL (31.0-37.0); MCV 89.8 fL (80.0-100.0); Mean Platelet Volume 10.5; Monocytes # (A) 0.5 k/uL (0-1.0); Monocytes % (A) 5 %; Neutrophils # (A) 7.6 k/uL (1.3-7.7); Neutrophils % (A) 75 %; Platelet Count 188 k/uL (150-450); RDW 13.3 % (11.5-15.5); WBC 10.1 k/uL (3.8-10.6)
[2022-11-09] MEDS: SENNOSIDES-DOCUSATE SODIUM 1 EACH TAB PO SCH ×2 (08:22→21:12)
--- NOTE | 2022-11-09 08:30 | P.PNOBGVD ---
Subjective - Subjective Patient reports: Reports appetite normal, Reports voiding normally, Reports pain well controlled, Reports ambulating normally : doing well, other (being evaluated for possible cardiac concerns.) Objective - Latest Vital Signs Latest vital signs: Vital Signs Temp Pulse Resp BP 11/09/22 00:00 98.6 F 60 16 119/70 11/08/22 19:39 98.8 F 86 16 126/76 11/08/22 15:50 97.6 F 76 16 126/79 11/08/22 15:25 60 16 112/55 11/08/22 14:57 56 L 16 121/59 11/08/22 14:34 58 L 16 125/58 11/08/22 14:17 55 L 17 113/57 11/08/22 14:02 61 16 99/55 11/08/22 13:47 97.9 F 78 16 97/63 Intake and Output 11/08/22 11/09/22 11/09/22 22:59 06:59 14:59 Output Total 120 Balance -120 Output: Output, Quantitative 120 Blood Loss Other: # Voids 1 1 - Exam Extremities: Present: normal Abdomen: Present: normal appearance, soft Uterus: Present: normal, firm (uterine fundus as tonic and nontender below the umbilicus.) - Labs Labs: Abnormal Lab Results - Last 24 Hours (Table) 11/09/22 Range/Units 06:56 RBC 3.60 L (3.80-5.40) m/uL Hgb 10.8 L (11.4-16.0) gm/dL Hct 32.4 L (34.0-46.0) % Assessment and Plan (1) Term Current Visit: Yes Status: Acute Code(s): Z34.90 - ENCNTR FOR SUPRVSN OF NORMAL , UNSP, UNSP TRIMESTER SNOMED Code(s): 95927166 (2) Group B streptococcal infection in Current Visit: Yes Status: Acute Code(s): O98.819 - OTH MATERNAL INFEC/PARASTC DISEASES COMP PREG, UNSP TRI SNOMED Code(s): 467382542 (3) Normal spontaneous vaginal delivery Current Visit: Yes Status: Acute Code(s): O80 - ENCOUNTER FOR FULL-TERM UNCOMPLICATED DELIVERY SNOMED Code(s): 77672893 Plan: continue routine care. I have encouraged the patient to walk in the halls routinely. She is remaining in the hospital secondary to her infants ongoing evaluation and will likely be discharged home tomorrow pending no complications.
[2022-11-09] MEDS: IBUPROFEN 600 MG TAB PO PRN ×2 (17:27→23:59)
[2022-11-10 07:40] VITALS: BP 106/71; PULSE 65; RESP 17; TEMP 98.6
--- NOTE | 2022-11-10 08:53 | P.DS ---
Providers Date of admission: 11/08/22 06:39 Expected date of discharge: 11/10/22 Attending physician: John Christopher Primary care physician: Stated None - Discharge Diagnosis(es) (1) Term Current Visit: Yes Status: Acute (2) Group B streptococcal infection in Current Visit: Yes Status: Acute (3) Normal spontaneous vaginal delivery Current Visit: Yes Status: Acute Hospital Course: the patient is a 32-year-old 9 para 2061 admitted at 39-0/7 weeks by good dating parameters. She is admitted for elective induction of labor with all signs reassuring. Her was uncomplicated and group B strep status is positive. As a result, she had antibiotic prophylaxis started as well as Pitocin augmentation. She then underwent artificial rupture of membranes for clear fluid. She progressed into the active phase of labor at which time an epidural catheter was placed. She made fairly consistent progress to complete and then pushed to a normal spontaneous vaginal delivery of a viable 7 lbs. 12 oz. baby boy with Apgars of 8 at 1 minute and 9 at 5 minutes. Her course was unremarkable with vital signs remaining stable and her temperature was afebrile throughout. She was deemed stable for discharge on day #2 was discharged home to follow-up in the office in 6 weeks' time routinely. Discharge instructions included calling for any significantly increased bleeding or foul-smelling lochia, significantly increased fever abdominal pain, perineal complaints, breast complaints, or anything else that concerned her. She was additionally instructed to have nothing in the vagina for at least 6 weeks time to include intercourse. She understood her instructions and agrees to follow up as noted above. Discharge medications included continued vitamins as she has opted to breast-feed. She was otherwise to use [id number] analgesic pain medications as needed. Maternal blood type is O+ and rubella status is immune. Procedures: #1. Antibody prophylaxis 2. Pitocin induction #3. Artificial rupture of membranes #4. Epidural analgesia #5. Normal spontaneous vaginal delivery #. Repair of perineal laceration Patient Condition at Discharge: Stable Plan - Discharge Summary New Discharge Prescriptions: No Action Bmn-Apwa-Mloqy Acid [-U Capsule] 1 each PO DAILY Levothyroxine Sodium [Synthroid] 1 tab PO DAILY Discharge Medication List Eco-Ybwx-Smere Acid [-U Capsule] 1 each PO DAILY 02/24/14 [History] Levothyroxine Sodium [Synthroid] 1 tab PO DAILY 11/08/22 [History] Follow up Appointment(s)/Referral(s): John Christopher MD [STAFF PHYSICIAN] - 6 Weeks Discharge Disposition: HOME SELF-CARE
[2022-11-10] MEDS: SENNOSIDES-DOCUSATE SODIUM 1 EACH TAB PO SCH (09:34)
== END 2022-11-10 15:05 | disposition home or self-care (01) | DRG 807 ==
LOC: 4FBP 06:39
PROVIDERS: ADMIT Obstetrics & Gynecology; ATTEND Obstetrics & Gynecology
PROC: 10E0XZZ Delivery of Products of Conception, External Approach (ICD-10-PCS; principal; 2022-11-08)
PROC: 0HQ9XZZ Repair Perineum Skin, External Approach (ICD-10-PCS; 2022-11-08)
PROC: 4A0HXCZ Measurement of Products of Conception, Cardiac Rate, External Approach (ICD-10-PCS; 2022-11-08)
PROC: 10907ZC Drainage of Amniotic Fluid, Therapeutic from Products of Conception, Via Natural or Artificial Opening (ICD-10-PCS; 2022-11-08)
PROC: 3E033VJ Introduction of Other Hormone into Peripheral Vein, Percutaneous Approach (ICD-10-PCS; 2022-11-08)
DX: O99.824 Streptococcus B carrier state complicating childbirth (principal); E89.0 Postprocedural hypothyroidism; O70.0 First degree perineal laceration during delivery; O99.284 Endocrine, nutritional and metabolic diseases complicating childbirth; Z37.0 Single live birth; Z3A.39 39 weeks gestation of pregnancy
CPT/HCPCS: 84443; 85025; 86850; 86900; 86901

== ENCOUNTER → 2023-02-01 | Outpatient (CLI) | payer MEDICAID ==
[2023-02-02 02:13] LABS: T4, Free (Free Thyroxine) 1.04 ng/dL (0.800-1.800)
== END | disposition home or self-care (01) ==
LOC: LABMAIN 15:51
PROVIDERS: ATTEND Internal Medicine Endocrinology, Diabetes & Metabolism
DX: E03.8 Other specified hypothyroidism (principal)
CPT/HCPCS: 84439; 84443

== ENCOUNTER → 2023-03-24 | Outpatient (CLI) | payer MEDICAID | END | disposition home or self-care (01) | LOC: LABMAIN 10:26 | PROVIDERS: ATTEND Physician Assistant | DX: E03.9 Hypothyroidism, unspecified (principal) | CPT/HCPCS: 84443 ==

== ENCOUNTER → 2023-11-27 | Outpatient (CLI) | payer MEDICAID | END | disposition home or self-care (01) | LOC: LABMAIN 06:56 | PROVIDERS: ATTEND Internal Medicine Endocrinology, Diabetes & Metabolism | DX: E03.8 Other specified hypothyroidism (principal) | CPT/HCPCS: 84443 ==

== ENCOUNTER → 2024-08-25 | Outpatient (CLI) | payer MEDICAID ==
[2024-08-25 22:42] LABS: Basophils # (A) 0.05 X 10*3/uL (0.00-0.10); Basophils % (A) 0.7 %; Eosinophils # (A) 0.17 X 10*3/uL (0.04-0.35); Eosinophils % (A) 2.4 %; HCT 40.1 % (37.2-46.3); HGB 13.3 g/dL (12.0-15.0); Lymphocytes # (A) 2.95 X 10*3/uL (0.90-5.00); Lymphocytes % (A) 42.4 %; MCH 30.6 pg (27.0-32.0); MCHC 33.2 g/dL (32.0-37.0); MCV 92.4 FL (80.0-97.0); Mean Platelet Volume 11.3 FL (9.5-12.2); Monocytes # (A) 0.48 X 10*3/uL (0.20-1.00); Monocytes % (A) 6.9 %; NRBC Per 100 WBC 0 X 10*3/uL (0.00-0.01); Neutrophils % (A) 47.5 %; Platelet Count 255 X 10*3/uL (140-440); RBC 4.34 X 10*6/uL (4.10-5.20); RDW 12.8 % (11.5-14.5); WBC 6.96 X 10*3/uL (4.50-10.00)
[2024-08-25 22:50] LABS: Erythrocyte Sedimentation Rate 20 mm/Hr (0-20)
[2024-08-25 23:08] LABS: ALT 17 U/L (8-44); AST 19 U/L (13-35); Albumin 4.8 g/dL (3.8-4.9); Albumin/Globulin Ratio 1.55 Ratio (1.60-3.17); Alkaline Phosphatase 61 U/L (41-126); BUN/Creat Ratio 23.71 Ratio (12.00-20.00); Blood Urea Nitrogen 16.6 mg/dL (9.0-27.0); C Reactive Protein <0.30 mg/dL (0.00-0.80); Calcium 9.4 mg/dL (8.7-10.3); Carbon Dioxide 24.4 mmol/L (21.6-31.8); Chloride 104 mmol/L (96-109); Globulin 3.1 g/dL (1.6-3.3); Glucose 90 mg/dL (70-110); LDL Cholesterol,Calculated 111.9 mg/dL (0.0-131.0); Potassium 4.1 mmol/L (3.5-5.5); Sodium 141 mmol/L (135-145); Total Bilirubin 0.3 mg/dL (0.3-1.2); Total Protein 7.9 g/dL (6.2-8.2); VLDL Calculation 10.54 mg/dL (5.00-40.00)
[2024-08-26 14:10] LABS: DNA Double-Stranded Negative (Negative); Gliadin AB IgA, Deaminated Negative (Negative); Gliadin AB IgG, Deaminated Negative (Negative); Gliadin AB IgG, Unit <0.4 U/mL
== END | disposition home or self-care (01) ==
LOC: LABMAIN 11:56
PROVIDERS: ATTEND Family Medicine
DX: Z00.00 Encounter for general adult medical examination without abnormal findings (principal); Z13.220 Encounter for screening for lipoid disorders; M79.10 Myalgia, unspecified site; Z86.39 Personal history of other endocrine, nutritional and metabolic disease
CPT/HCPCS: 80053; 80061; 82550; 82552; 82607; 82746; 83516; 84443; 85025; 85652; 86038; 86140; 86225; 86235

== ENCOUNTER → 2025-01-08 | Outpatient (CLI) | payer MEDICAID | END | disposition home or self-care (01) | LOC: LABWHC1 10:57 | PROVIDERS: ATTEND Physician Assistant | DX: Z34.90 Encounter for supervision of normal pregnancy, unspecified, unspecified trimester (principal) | CPT/HCPCS: 36415; 84702; 84703 ==

== ENCOUNTER → 2025-01-23 | Outpatient (CLI) | payer MEDICAID | END | disposition home or self-care (01) | LOC: LABMAIN 14:09 | PROVIDERS: ATTEND Obstetrics & Gynecology | DX: Z34.81 Encounter for supervision of other normal pregnancy, first trimester (principal) | CPT/HCPCS: 84702 ==